=== PATIENT | male | born 1955 | race Caucasian/White ===

== ENCOUNTER 2016-08-01 14:12 | Emergency (ER) | payer OTHER ==
[~2016-08-01] VITALS: Wt 100.0 kg
[~2016-08-01 14:12] MED LIST: ASPI81TA3 PO; LOSA1TAB20 PO; MECL-77 PO; METF500T3 PO; METO25TA4 PO; ZOLP10TA PO
[2016-08-01] MEDS ORDERED: ACETAMINOPHEN 500 MG TAB PO STA (16:31)
[2016-08-01] MEDS ORDERED: SOD CHLORIDE 0.9% 1,000 ML IV ONE (17:00)
[2016-08-01] MEDS ORDERED: VANCOMYCIN 1 GM (PMX) 250 ML IVPB SCH (17:00)
--- NOTE | 2016-08-01 17:07 | ERD ---
ER Documentation Chief Complaint Date/Time DATE: 08/01/16 TIME: 17:03 Chief Complaint right hand pain and swelling with redness since yesterday. no trauma (NIMISHA MAYERS PA-C) HPI Patient is a 61-year-old male with a past medical history of diabetes and hypertension who presents the ED with right hand pain and swelling since yesterday. He states that he woke up yesterday morning with pain to his right hand and now has developed increasing redness and pain. He was sent here from his primary care provider Dr. Echo Gautam to rule out DVT. He denies fever or chills. Denies abdominal pain, nausea, vomiting or diarrhea. He also denies any new onset trauma or injury. He denies hurting his wrist. Denies pain in his elbow or shoulder. Denies headache or dizziness. Denies leg pain or swelling. Denies chest pain, cough, shortness of breath or difficulty breathing. (NIMISHA MAYERS PA-C) ROS All systems reviewed and are negative except as per history of present illness. (NIMISHA MAYERS PA-C) Medications Home Meds Active Scripts Naproxen* (Naprosyn*) 500 Mg Tablet, 500 MG PO BID Y for PAIN AND/OR INFLAMMATION, #30 TAB Prov:NIMISHA MAYERS PA-C 08/01/16 Cephalexin* (Keflex*) 500 Mg Capsule, 500 MG PO QID for 5 Days, CAP Prov:NIMISHA MAYERS PA-C 08/01/16 Sulfamethoxazole-Trimethoprim* (Bactrim* DS) 800-160 Mg Tab, 1 TAB PO BID for 5 Days, TAB Prov:NIMISHA MAYERS PA-C 08/01/16 Reported Medications Meclizine Hcl* (Meclizine Hcl*) 25 Mg Tablet, 25 MG PO DAILY Y for DIZZINESS, TAB 04/03/15 Metoprolol Tartrate* (Lopressor*) 25 Mg Tablet, 25 MG PO BID, TAB 04/03/15 Aspirin* (Aspirin* Chew) 81 Mg Tab.chew, 81 MG PO DAILY, TAB.CHEW 04/03/15 Losartan-Hydrochlorothiazide (Losartan-HCTZ) 100-25 Mg Tab, 1 TAB PO DAILY, TAB 04/03/15 Zolpidem Tartrate* (Ambien*) 10 Mg Tablet, 10 MG PO HS Y for INSOMNIA, TAB 04/03/15 Metformin* (Glucophage* XR) 500 Mg Tab.sr.24h, 500 MG PO BID 08/05/12 Allergies Allergies: Coded Allergies: No Known Allergy (Unverified , 08/05/12) PMhx/Soc History of Surgery: Yes (VEIN STRIPPING) Anesthesia Reaction: No Hx Neurological Disorder: Yes Hx Respiratory Disorders: No Hx Cardiac Disorders: Yes (HIGH BP) Hx Psychiatric Problems: Yes (HX OF DEPRESSION) Hx Miscellaneous Medical Probl: Yes (DM) Hx Alcohol Use: Yes Hx Substance Use: No Hx Tobacco Use: Yes (5-6 CIGS) Smoking Status: Current every day smoker (NIMISHA MAYERS PA-C) FmHx Family History: No coronary disease, No diabetes, No other (NIMISHA MAYERS PA-C) Physical Exam Vitals Vital Signs Date Time Temp Pulse Resp B/P Pulse Ox O2 Delivery O2 Flow Rate FiO2 08/01/16 14:26 98.4 93 20 150/81 97 (PARISH JIMENES DO) Physical Exam GENERAL: Well-developed, well-nourished male. Appears in no acute distress. LUNG: Clear to auscultation bilaterally. No rhonchi, wheezing, rales or coarse breath sounds. HEART: Regular rate and rhythm. No murmurs, rubs or gallops. Extremities: Equal pulses bilaterally. No peripheral clubbing, cyanosis or edema. No unilateral leg swelling. right hand swelling and tenderness from fingertips to wrist. unable to flexion or extension. pulses intact. no drainage. sensation intact bilaterally. no pain above his wrist, elbow or shoulder. warmth noted. NEUROLOGIC: Alert and oriented. Moving all four extremities. 5/5 strength in all extremities. Normal speech. Steady gait. SKIN: Normal color. Warm and dry. No rashes or lesions. Capillary refill < 2 seconds (NIMISHA MAYERS PA-C) Result Diagram: 08/01/16 1800 08/01/16 1800 Results 24 hrs Laboratory Tests Test 08/01/16 18:00 Alanine Aminotransferase (ALT/SGPT) 14IU/L Albumin 3.8g/dl Albumin/Globulin Ratio 1.02 Alkaline Phosphatase 87IU/L Anion Gap 16 Aspartate Amino Transf (AST/SGOT) 19IU/L Basophils # 0.010^3/ul Basophils % 0.2% Blood Morphology Comment Blood Urea Nitrogen 12mg/dl Calcium Level 9.2mg/dl Carbon Dioxide Level 28mmol/L Chloride Level 98mmol/L Creatinine 0.64mg/dl Direct Bilirubin 0.00mg/dl Eosinophils # 0.110^3/ul Eosinophils % 0.7% Globulin 3.70g/dl Glucose Level 97mg/dl Hematocrit 41.6% Hemoglobin 14.1g/dl Indirect Bilirubin 0.6mg/dl Lymphocytes # 1.810^3/ul Lymphocytes % 17.8% Mean Corpuscular Hemoglobin 30.6pg Mean Corpuscular Hemoglobin Concent 34.0g/dl Mean Corpuscular Volume 90.0fl Mean Platelet Volume 9.5fl Monocytes # 0.810^3/ul Monocytes % 7.6% Neutrophils # 7.310^3/ul Neutrophils % 73.7% Nucleated Red Blood Cells # 0.010^3/ul Nucleated Red Blood Cells % 0.0/100WBC Platelet Count 86089^3/UL Potassium Level 3.6mmol/L Red Blood Count 4.6210^6/ul Red Cell Distribution Width 14.7% Sodium Level 138mmol/L Total Bilirubin 0.6mg/dl Total Protein 7.5g/dl White Blood Count 10.010^3/ul Current Medications Medications (Trade) Dose Ordered Sig/Yolanda Route PRN Reason Start Time Stop Time Status Last Admin Dose Admin Vancomycin HCl 250 ml @ 125 mls/hr ONCE IVPB 08/01/16 17:00 08/01/16 18:59 DC 08/01/16 17:57 Sodium Chloride (NS) 1,000 ml @ 1,000 mls/hr Q1H ONCE IV 08/01/16 17:00 08/01/16 17:59 DC 08/01/16 17:57 Acetaminophen (Tylenol Tab) 1,000 mg ONCE STAT PO 08/01/16 16:31 08/01/16 16:36 DC 08/01/16 17:57 (PARISH JIMENES DO) Procedures/MDM ER COURSE: I kept the patient and/or family informed of laboratory and diagnostic imaging results throughout the emergency room course. EKG, MONITORS, & DIAGNOSTIC IMAGING: [place] [id number] Radiology Main Line: [phone] DIAGNOSTIC IMAGING REPORT Patient: SYD SHERIDAN : 1955 Age: 61 Sex: M MR #: [id number] [facility] #: [id number] DOS: 08/01/16 1631 Ordering MD: NIMISHA MAYERS PA-C Location: [facility] Room/Bed: PROCEDURE: US right upper extremity veins. CLINICAL INDICATION: Right arm pain and swelling. TECHNIQUE: Multiple longitudinal and transverse images of the right upper extremity venous tree was obtained with jones scale, pulsed Doppler, and color Doppler imaging. COMPARISON: None available FINDINGS: The right internal jugular, subclavian, axillary, brachial, basilic, cephalic, radial, and ulnar veins are patent. There is normal flow with augmentation and compressibility throughout. There is no thrombus or occlusion. IMPRESSION: 1. Normal venous system of the right upper extremity. No evidence of thrombus or occlusion. RPTAT: QQ .Juan Pablo Gill MD, MD Date Time Electronically viewed and signed by .Juan Pablo Gill MD, MD on 08/01/2016 17:27 .R/ CC: NIMISHA MAYERS PA-C MEDICATIONS: 1 L fluid, vancomycin, p.o. Tylenol 1 g. Patient tolerated medication well with no adverse reaction. LAB INTERPRETATION: CBC showed no evidence of systemic infection or severe anemia. CMP showed no evidence of electrolyte abnormalities, severe acidosis, alkalosis, renal failure , or liver disease. Lipase showed no evidence of acute pancreatitis. MEDICAL DECISION MAKING: This is a 61-year-old male who presents with right hand pain. Vital signs were reviewed. Patient is afebrile. Patient is not hypoxic. Patient likely has cellulitis of his right hand. I have consulted with Dr. Jimenes who has come to bedside and examined patient and agrees with ER plan. Patient has cellulitis of his right hand. His ultrasound is negative as read by radiologist. Low suspicion for necrotizing fasciitis, SJS, toxic epidermal necrolysis, Kawasaki, erythema multiforme, gangrene, scarlet fever, meningococcemia, sepsis, anaphylaxis, sepsis, deep space infection, or foreign body. DISCHARGE: At this time, patient is stable for discharge and outpatient management with no new complaints during the ER course. Patient was sent home with Bactrim, Keflex and Naprosyn. Patient will return to the ED in 2 days for recheck due to the cellulitis as well as patient being a diabetic. Patient understand and agrees with plan and will return to the ED in 2 days for recheck.. Patient will be discharged home with instructions to recheck for new or worsening symptoms such as fever, nausea, weakness, LOC and to follow up with primary care in the next 1 -2 days. Patient was advised to return to the ER for any new or worsening symptoms. Plan was discussed and patient and/or family understands and agrees. Home instructions were given. (NIMISHA MAYERS PA-C) I saw and examined this patient with the physician's wet process miller head assistant. Physical exam this is an obvious case of cellulitis associated erythema, mild swelling and calor. No obvious puncture wound is seen. The patient is diabetic and is given a gram of vancomycin in the emergency room. He had no unstable vital signs and laboratories were obtained. He did not have a white count to suggest a systemic spread of this infection yet. His distal localized to the hand in the distal forearm trial of outpatient antibiotics including Bactrim and Keflex is appropriate at this time. I'm having come back in a 2 day wound check to make sure that there is no extension of the spread of the infection is actually getting better in order to prevent any eventual threat to his limb or progression to sepsis. (PARISH JIMENES DO) Departure Diagnosis: Primary Impression: Cellulitis Site of cellulitis: extremity Site of cellulitis of extremity: upper extremity Laterality: right Qualified Code: L03.113 - Cellulitis of right upper extremity Condition: Stable NIMISHA MAYERS PA-C Aug 01, 2016 17:07 PARISH JIMENES DO Aug 01, 2016 19:09
--- NOTE | 2016-08-01 17:27 | RADRPT ---
PROCEDURE: US right upper extremity veins. CLINICAL INDICATION: Right arm pain and swelling. TECHNIQUE: Multiple longitudinal and transverse images of the right upper extremity venous tree wa s obtained with jones scale, pulsed Doppler, and color Doppler imaging. COMPARISON: None available FINDINGS: The right internal jugular, subclavian, axillary, brachial, basilic, cephalic, radial, and ulnar vei ns are patent. There is normal flow with augmentation and compressibility throughout. There is no t hrombus or occlusion. IMPRESSION: 1. Normal venous system of the right upper extremity. No evidence of thrombus or occlusion. RPTAT: QQ .Juan Pablo Gill MD, MD Date Time Electronically viewed and signed by .Juan Pablo Gill MD, MD on 08/01/2016 17:27 .R/
[2016-08-01 18:23] LABS: BASOPHILS % 0.2 % (0.0-2.0); EOSINOPHILS # 0.1 10^3/ul (0.0-0.5); EOSINOPHILS % 0.7 % (0.0-7.0); HEMATOCRIT 41.6 % (42.0-52.0); HEMOGLOBIN 14.1 g/dl (14.0-18.0); LYMPHOCYTES # 1.8 10^3/ul (0.8-2.9); LYMPHOCYTES % 17.8 % (15.0-51.0); MEAN CORPUSCULAR HEMOGLOBIN 30.6 pg (29.0-33.0); MEAN PLATELET VOLUME 9.5 fl (7.4-10.4); MONOCYTE # 0.8 10^3/ul (0.3-0.9); MONOCYTES % 7.6 % (0.0-11.0); NEUTROPHIL # 7.3 10^3/ul (1.6-7.5); NEUTROPHILS % 73.7 % (39.0-77.0); PLATELET COUNT 169 10^3/UL (140-440); RED BLOOD COUNT 4.62 10^6/ul (4.70-6.10); RED CELL DISTRIBUTION WIDTH 14.7 % (11.5-14.5)
[2016-08-01 18:27] LABS: ALBUMIN 3.8 g/dl (3.3-4.9)
[2016-08-01 18:28] LABS: CONDITION 1; LH ANALYZER COMMENTS 1; POTASSIUM 3.6 mmol/L (3.5-5.1)
[2016-08-01 18:30] LABS: ALBUMIN/GLOBULIN RATIO 1.02; BILIRUBIN,INDIRECT 0.6 mg/dl (0-1.1); BILIRUBIN,TOTAL 0.6 mg/dl (0.2-1.3); CREATININE 0.64 mg/dl (0.61-1.24); TOTAL PROTEIN 7.5 g/dl (6.1-8.1)
[2016-08-01 18:31] LABS: CALCIUM 9.2 mg/dl (8.4-10.2)
[2016-08-01] MEDS ORDERED: BACTDS PO (18:56)
[2016-08-01] MEDS ORDERED: CEPH-443 PO (18:56)
[2016-08-01] MEDS ORDERED: NAPR-260 PO (19:08)
[2016-08-01 20:18] VITALS: BP 138/83; PULSE 87; RESP 16; TEMP 98
== END 2016-08-01 20:21 | disposition home or self-care (01) ==
LOC: FTE 14:12
DX: L03.113 Cellulitis of right upper limb (principal); I10 Essential (primary) hypertension; E11.9 Type 2 diabetes mellitus without complications; F17.210 Nicotine dependence, cigarettes, uncomplicated; Z79.82 Long term (current) use of aspirin; Z79.84 Long term (current) use of oral hypoglycemic drugs
CPT/HCPCS: 36415; 80053; 85025; 93971; 96374; J3370; J7030; Z7502; Z7610